=== PATIENT | male | born 1980 ===

== ENCOUNTER 2019-01-24 20:39 | Observation (INO) | payer SELFPAY ==
[2019-01-24] MEDS ORDERED: Multivitamin (MVI) 10 ML, Folic Acid 1 MG, Thiamine 100 MG in Dextrose 5%/0.45% NS 1,00... IV ONE (21:11)
[2019-01-24] MEDS ORDERED: Sodium Chloride 0.9% 1,000 ML IV STA (21:12)
--- NOTE | 2019-01-24 21:14 | ED PDOC ---
HPI: Psych/Substance Abuse Time Seen by Provider: 01/24/19 21:07 Chief Complaint (Nursing): Alcohol Ingestion Chief Complaint (Provider): Withdrawal History Per: Patient History/Exam Limitations: no limitations Onset/Duration Of Symptoms: Days (yesterday) Additional Complaint(s): Pt. states he is withdrawing from not drinking etoh since yesterday. Has nausea, shakes, and weakness all over. No numbness, tingles, abd pain, chest pain, dyspnea, dizziness, headaches. No drugs. Not suicidal or homicidal. Seen at [facility] yesterday and had neg ct head and dc. Past Medical History Reviewed: Nursing Documentation, Vital Signs Vital Signs: Last Vital Signs Temp 100.1 F H 01/24/19 20:43 Pulse 127 H 01/24/19 20:43 Resp 18 01/24/19 20:43 BP 189/119 H 01/24/19 20:43 Pulse Ox 99 01/24/19 20:43 - Medical History PMH: Asthma, HTN - Family History Family History: States: Unknown Family Hx - Living Arrangements Living Arrangements: With Family - Social History Alcohol: > 2 Drinks/Day Drugs: Denies - Home Medications Home Medications: Ambulatory Orders Medication Instructions Recorded Aspirin [Aspirin Chewable] 1 tab PO DAILY 01/24/19 Escitalopram [Lexapro] 2 tab PO DAILY 01/24/19 Levothyroxine [Synthroid] 25 mcg PO DAILY 01/24/19 Metformin HCl [Glucophage] 1,000 mg PO BID 01/24/19 Mirabegron [Myrbetriq] 50 mg PO DAILY 01/24/19 Multivitamin [Daily Multiple 1 tab PO DAILY 01/24/19 Vitamin] Pravastatin Sodium [Pravachol] 40 mg PO DAILY 01/24/19 busPIRone [Buspar] 5 mg PO BID 01/24/19 - Allergies Allergies/Adverse Reactions: Allergies Allergy/AdvReac Type Severity Reaction Status Date / Time FISH Allergy Verified 01/23/19 17:02 Review of Systems ROS Statement: Except As Marked, All Systems Reviewed And Found Negative Gastrointestinal: Positive for: Nausea Neurological: Positive for: Weakness Physical Exam - Reviewed Nursing Documentation Reviewed: Yes Vital Signs Reviewed: Yes - Physical Exam Appears: Positive for: Non-toxic, No Acute Distress Head Exam: Positive for: ATRAUMATIC, NORMAL INSPECTION, NORMOCEPHALIC Skin: Positive for: Normal Color, Warm, DRY Eye Exam: Positive for: EOMI, Normal appearance, PERRL ENT: Positive for: Normal ENT Inspection Neck: Positive for: Normal, Painless ROM, Supple Cardiovascular/Chest: Positive for: Regular Rate, Rhythm Respiratory: Positive for: CNT, Normal Breath Sounds Gastrointestinal/Abdominal: Positive for: Normal Exam, Soft. Negative for: Tenderness Back: Positive for: Normal Inspection. Negative for: L CVA Tenderness, R CVA Tenderness Extremity: Positive for: Normal ROM. Negative for: Tenderness, Pedal Edema Neurological/Psych: Positive for: Awake, Alert, Normal Tone, ignition mechanic II-XII, Other (mild shaking in hands on moving around) - Laboratory Results Result Diagrams: 01/24/19 21:20 01/24/19 21:20 Lab Results: mag 1 and platelets 35 - ECG ECG: Positive for: Interpreted By Me, Viewed By Me ECG Rhythm: Positive for: Normal QRS, Normal ST Segment, Sinus Rhythm O2 Sat by Pulse Oximetry: 99 Pulse Ox Interpretation: Normal - Progress ED Course And Treament: 2200: Stable. Continue fluids. 2311: Stable. AAOx3. Still feels weak. Will need to give continued fluids and monitor obs for withdrawal. Spoke with Dr. Richardson. Will admit tele for further eval/tx. - Critical Care Total Time (In Min): 30 Documented Critical Care: Time excludes all time spent performint seperately billable procedures Disposition - Clinical Impression Clinical Impression: Alcohol dependence with withdrawal - Patient ED Disposition Is Patient to be Admitted: Yes Counseled Patient/Family Regarding: Studies Performed, Diagnosis - Disposition Disposition Time: 21:14 Condition: FAIR - POA Present On Arrival: None
[2019-01-24 21:33] LABS: BASO # 0.1 K/uL (0.0-0.2); EOS % 0.3 % (0.0-4.0); HEMOGLOBIN 10.4 g/dL (12.0-18.0); LYMPH # 2.4 K/uL (1.0-4.3); LYMPH % 44.8 % (20.0-40.0); MEAN CELL VOLUME 100.9 fl (80.0-94.0); MEAN CORPUSCULAR HEMOGLOBIN 34.1 pg (27.0-31.0); MEAN CORPUSCULAR HGB CONC 33.8 g/dL (33.0-37.0); MEAN PLATELET VOLUME 9.5 fl (7.2-11.7); MONO # 0.4 K/uL (0.0-0.8); MONO % 6.7 % (0.0-10.0); NEUT # 2.6 K/uL (1.8-7.0); NEUT % 47.2 % (50.0-75.0); NRBC % 0.1 % (0.0-0.0); RBC 3.05 Mil/uL (4.40-5.90); RED CELL DISTRIBUTION WIDTH 16.1 % (11.5-14.5); WHITE BLOOD COUNT 5.5 K/uL (4.8-10.8)
[2019-01-24 21:50] LABS: INR 1.7; PROTHROMBIN TIME 19.1 Seconds (9.8-13.1)
[2019-01-24 21:51] LABS: BLOOD UREA NITROGEN 10 mg/dl (9-20); GFR NON-AFRICAN AMERICAN > 60
[2019-01-24 21:52] LABS: PARTIAL THROMBOPLASTIN TIME 37.5 Seconds (25.6-37.1)
[2019-01-24] MEDS ORDERED: Magnesium Sulfate 2 gm/50 ml 2 GM/50 ML BAG IVPB ONE (21:53)
[2019-01-24 21:55] LABS: ALB/GLOB RATIO 0.7 (1.0-2.1); ALBUMIN 3.7 g/dL (3.5-5.0); ALT/SGPT 44 U/L (21-72); AST/SGOT 163 U/L (17-59); CALCIUM 8.7 mg/dL (8.4-10.2); LIPASE 188 U/L (23-300)
[2019-01-24] MEDS ORDERED: Dextrose 50% SYRINGE Inj (50 ml) IV PRN (23:34)
[2019-01-24] MEDS ORDERED: Glucagon Recombinant 1 mg Inj IM PRN (23:34)
--- NOTE | 2019-01-25 00:11 | CP.PCM.HP ---
<Nicky Cha - Last Filed: 01/25/19 00:26> History of Present Illness - History of Present Illness History of Present Illness: 38 y/o male w/ hx of HTN and etoh abuse who presented to [facility] ER with c/o fatigue and hand tremors. Patient reports that he drank 7 alcoholic beverages yesterday, fell unconscious, was evaluated at [facility] ER, (CT negative for acute pathology) and discharged to home. He did not have any alcoholic drinks today, and began to feel fatigued, anxious, and shaking. He denies visual changes, auditory/visual hallucinations, chest pain. He endorses nausea, denies vomiting. Denies hx of bloody vomiting/bloody stool. Denies use of other recreational drugs. PMD: Dr. Maier Pmhx: HTN, anxiety, etoh misuse HomeRx: (goes to [facility] on [place]) Lexapro 20mg PO BID, Aprin 81 mg PO QD, Metf ormin 1000mg PO BID Famhx: Mother w/ hx of HTN. Father in his 50s due to an [facility] SocialHx: lives w/ mother. Denies tobacco and recreational drug use. Drinks etoh daily >6 drinks per day for several months SurgHx: denies Allergies: NKDA, seafood: hives Code Status: Full Code Next of Kin: MotherJuany [phone] Present on Admission - Present on Admission Any Indicators Present on Admission: No History of DVT/PE: No History of Uncontrolled Diabetes: No Urinary Catheter: No Decubitus Ulcer Present: No Review of Systems - Review of Systems All systems: reviewed and no additional remarkable complaints except - Constitutional Constitutional: Fatigue, Frequent Falls, Lethargy - EENT Eyes: absent: Change in Vision - Cardiovascular Cardiovascular: Palpitations. absent: Chest Pain - Gastrointestinal Gastrointestinal: Nausea. absent: Hematemesis, Hematochezia, Vomiting - Musculoskeletal Musculoskeletal: Tingling - Neurological Neurological: Tremor - Psychiatric Psychiatric: Anxiety. absent: Auditory Hallucinations, Visual Hallucinations Past Patient History - Past Social History Alcohol: > 2 Drinks/Day Drugs: Denies - CARDIAC Hx Hypertension: Yes - PULMONARY Hx Asthma: Yes - HEENT Other/Comment: Rt. eye truama - HEMATOLOGICAL/ONCOLOGICAL Hx Blood Disorders: Yes Hx Anemia: Yes Hx Hepatitis A: Yes - GASTROINTESTINAL Hx Gastrointestinal Disorders: Yes Hx Pancreatitis: Yes - PSYCHIATRIC Hx Substance Use: No - SURGICAL HISTORY Hx Surgeries: No - ANESTHESIA Hx Anesthesia: No Hx Anesthesia Reactions: No Meds Allergies/Adverse Reactions: Allergies Allergy/AdvReac Type Severity Reaction Status Date / Time FISH Allergy Verified 01/23/19 17:02 Physical Exam - Constitutional Appears: No Acute Distress, Older Than Stated Age - Head Exam Head Exam: ATRAUMATIC, NORMAL INSPECTION - Eye Exam Eye Exam: EOMI, PERRL. absent: Scleral icterus - ENT Exam ENT Exam: Mucous Membranes Moist - Neck Exam Neck exam: Positive for: Normal Inspection - Respiratory Exam Respiratory Exam: Clear to Auscultation Bilateral, NORMAL BREATHING PATTERN - Cardiovascular Exam Cardiovascular Exam: Tachycardia, +S1, +S2 - GI/Abdominal Exam GI & Abdominal Exam: Normal Bowel Sounds, Soft. absent: Distended, Tenderness - Extremities Exam Extremities exam: Positive for: normal inspection. Negative for: calf tenderness, pedal edema - Neurological Exam Neurological exam: Alert, Oriented x3 - Psychiatric Exam Psychiatric exam: Anxious - Skin Skin Exam: Dry, Intact, Warm Results - Vital Signs Recent Vital Signs: Last Vital Signs Temp 98.5 F 01/25/19 00:07 Pulse 102 H 01/25/19 00:07 Resp 19 01/25/19 00:07 BP 175/107 H 01/25/19 00:07 Pulse Ox 100 01/25/19 00:07 - Labs Result Diagrams: 01/24/19 21:20 01/24/19 21:20 Labs: Laboratory Results - last 24 hr 01/24/19 01/24/19 01/24/19 21:20 21:20 21:20 WBC 5.5 RBC 3.05 L Hgb 10.4 L Hct 30.8 L MCV 100.9 H MCH 34.1 H MCHC 33.8 RDW 16.1 H Plt Count 35 L MPV 9.5 Neut % (Auto) 47.2 L Lymph % (Auto) 44.8 H Barron % (Auto) 6.7 Eos % (Auto) 0.3 Baso % (Auto) 1.0 Neut # (Auto) 2.6 Lymph # (Auto) 2.4 Barron # (Auto) 0.4 Eos # (Auto) 0.0 Baso # (Auto) 0.1 PT 19.1 H INR 1.7 APTT 37.5 H Sodium 144 Potassium 3.5 L Chloride 104 Carbon Dioxide 24 Anion Gap 20 BUN 10 Creatinine 0.9 Est GFR ( Amer) > 60 Est GFR (Non-Af Amer) > 60 POC Glucose (mg/dL) Random Glucose 107 Calcium 8.7 Phosphorus 3.1 Magnesium 1.0 L* Total Bilirubin 2.5 H AST 163 H ALT 44 Alkaline Phosphatase 132 H Total Protein 9.2 H Albumin 3.7 Globulin 5.4 H Albumin/Globulin Ratio 0.7 L Lipase 188 Alcohol, Quantitative 27 H 01/24/19 21:24 WBC RBC Hgb Hct MCV MCH MCHC RDW Plt Count MPV Neut % (Auto) Lymph % (Auto) Barron % (Auto) Eos % (Auto) Baso % (Auto) Neut # (Auto) Lymph # (Auto) Barron # (Auto) Eos # (Auto) Baso # (Auto) PT INR APTT Sodium Potassium Chloride Carbon Dioxide Anion Gap BUN Creatinine Est GFR ( Amer) Est GFR (Non-Af Amer) POC Glucose (mg/dL) 94 Random Glucose Calcium Phosphorus Magnesium Total Bilirubin AST ALT Alkaline Phosphatase Total Protein Albumin Globulin Albumin/Globulin Ratio Lipase Alcohol, Quantitative Assessment & Plan - Assessment and Plan (Free Text) Assessment: 38 y/o male w/ hx of HTN and etoh abuse admitted for alcohol withdrawal and electrolyte imbalance. ETOH Withdrawal Admit to telemetry CIWA protocol in place Ativan 1mg PO Q4 PRN for agitation Ativan 2mg PO Q4 PRN for withdrawal Clonidine 0.2mg PO BID Librium 50mg PO Q8H seizure prophylaxis Thiamine 100mg PO QD Seizure precautions cont. Aspiration precautions cont. Neurochecks Q4H Banana Bag @ 125ml/hr Electrolyte Imbalance K+ 3.5, Mag 1.0 Received Mag Sulfate 2gm in 50ml IVPD once in ER Mag Oxide 400mg PO Q4H (x4 doses ordered) Will Supplement KCl- 40mg PO once Trend and monitor electrolytes F/u CMP and mag levels in AM Hypertension Clonidine 0.2mg PO BID Monitor vitals Thrombocytopenia Pltlt ct. 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 home meds; Lexapro 40mg PO QD Hx of Recent Fall Head CT 01/23/19: no acute intracranial abnormalities GI prophylaxis Protonix 40mg PO QD DVT Prophylaxis SCDs Diet NPO for now, heart healthy in the AM Code Status Full Code <Daniel Richardson - Last Filed: 01/25/19 07:19> Results - Vital Signs Recent Vital Signs: Last Vital Signs Temp 98.2 F 01/25/19 05:27 Pulse 70 01/25/19 05:27 Resp 18 01/25/19 06:04 BP 153/88 H 01/25/19 05:27 Pulse Ox 93 L 01/25/19 06:04 - Labs Result Diagrams: 01/25/19 04:30 01/25/19 04:30 Labs: Laboratory Results - last 24 hr 01/24/19 01/24/19 01/24/19 21:20 21:20 21:20 WBC 5.5 RBC 3.05 L Hgb 10.4 L Hct 30.8 L MCV 100.9 H MCH 34.1 H MCHC 33.8 RDW 16.1 H Plt Count 35 L MPV 9.5 Neut % (Auto) 47.2 L Lymph % (Auto) 44.8 H Barron % (Auto) 6.7 Eos % (Auto) 0.3 Baso % (Auto) 1.0 Neut # (Auto) 2.6 Lymph # (Auto) 2.4 Barron # (Auto) 0.4 Eos # (Auto) 0.0 Baso # (Auto) 0.1 PT INR APTT Sodium 144 Potassium 3.5 L Chloride 104 Carbon Dioxide 24 Anion Gap 20 BUN 10 Creatinine 0.9 Est GFR ( Amer) > 60 Est GFR (Non-Af Amer) > 60 POC Glucose (mg/dL) Random Glucose 107 Calcium 8.7 Phosphorus 3.1 Magnesium 1.0 L* Total Bilirubin 2.5 H AST 163 H ALT 44 Alkaline Phosphatase 132 H Total Protein 9.2 H Albumin 3.7 Globulin 5.4 H Albumin/Globulin Ratio 0.7 L Lipase 188 Urine Opiates Screen Negative Urine Methadone Screen Negative Ur Barbiturates Screen Negative Ur Phencyclidine Scrn Negative Ur Amphetamines Screen Negative U Benzodiazepines Scrn Positive U Oth Cocaine Metabols Negative U Cannabinoids Screen Negative Alcohol, Quantitative 27 H 0301/24/19 01/25/19 21:20 21:24 04:30 WBC 4.1 L RBC 2.83 L Hgb 9.7 L Hct 28.7 L MCV 101.4 H MCH 34.3 H MCHC 33.9 RDW 16.0 H Plt Count 21 L* D MPV 9.8 Neut % (Auto) 43.8 L Lymph % (Auto) 45.8 H Barron % (Auto) 8.9 Eos % (Auto) 1.1 Baso % (Auto) 0.4 Neut # (Auto) 1.8 Lymph # (Auto) 1.9 Barron # (Auto) 0.4 Eos # (Auto) 0.0 Baso # (Auto) 0.0 PT 19.1 H INR 1.7 APTT 37.5 H Sodium Potassium Chloride Carbon Dioxide Anion Gap BUN Creatinine Est GFR ( Amer) Est GFR (Non-Af Amer) POC Glucose (mg/dL) 94 Random Glucose Calcium Phosphorus Magnesium Total Bilirubin AST ALT Alkaline Phosphatase Total Protein Albumin Globulin Albumin/Globulin Ratio Lipase Urine Opiates Screen Urine Methadone Screen Ur Barbiturates Screen Ur Phencyclidine Scrn Ur Amphetamines Screen U Benzodiazepines Scrn U Oth Cocaine Metabols U Cannabinoids Screen Alcohol, Quantitative 01/25/19 01/25/19 04:30 05:56 WBC RBC Hgb Hct MCV MCH MCHC RDW Plt Count MPV Neut % (Auto) Lymph % (Auto) Barron % (Auto) Eos % (Auto) Baso % (Auto) Neut # (Auto) Lymph # (Auto) Barron # (Auto) Eos # (Auto) Baso # (Auto) PT INR APTT Sodium 140 Potassium 3.5 L Chloride 105 Carbon Dioxide 27 Anion Gap 12 BUN 10 Creatinine 0.9 Est GFR ( Amer) > 60 Est GFR (Non-Af Amer) > 60 POC Glucose (mg/dL) 130 H Random Glucose 131 H Calcium 7.9 L Phosphorus 3.3 Magnesium 1.6 Total Bilirubin 2.7 H AST 149 H ALT 53 Alkaline Phosphatase 105 Total Protein 8.3 H Albumin 3.2 L Globulin 5.1 H Albumin/Globulin Ratio 0.6 L Lipase Urine Opiates Screen Urine Methadone Screen Ur Barbiturates Screen Ur Phencyclidine Scrn Ur Amphetamines Screen U Benzodiazepines Scrn U Oth Cocaine Metabols U Cannabinoids Screen Alcohol, Quantitative Attending/Attestation - Attestation I have personally seen and examined this patient.: Yes I have fully participated in the care of the patient.: Yes I have reviewed all pertinent clinical information: Yes Notes (Text): 01/25/19 06:58 I saw, examined and discussed this patient with Dr Cha. I agree with the assessment and plan outlined and will add or correct where necessary. This is a 38 years old male Alcoholic with hx of Hepatitis A, Pancreatitis, Thro mbocytopenia and Macrocytic Anemia whose last alcoholic drink was the day prior to this admission. He comes with generalized weakness, tremors, nausea and in the Ed, elevated BP of 189/119mmHg, HR of 127 and temperature of 100.1F. He is being treated for Alcoholic Withdrawal and Electrolyte imbalance with Hypomagnesemia and Hypokalemia Follow electrolyes, LFT and CBC. Daniel Richardson MD 01/25/19 07:18
[2019-01-25] MEDS ORDERED: Potassium Chloride 20 mEq ER Tab PO ONE ×3 (00:17→07:00)
[2019-01-25] MEDS: Magnesium Oxide 400 mg Tab UD PO SCH ×3 (03:32→08:22)
[2019-01-25 03:44] LABS: BARBITURATES, UR NEGATIVE (NEGATIVE); BENZODIAZEPINES, UR POSITIVE (NEGATIVE); OPIATES, UR NEGATIVE (NEGATIVE); PHENCYCLIDINE, UR NEGATIVE (NEGATIVE)
[2019-01-25 05:28] VITALS: TEMP 98.2
[2019-01-25 06:08] LABS: BASO % 0.4 % (0.0-2.0); EOS % 1.1 % (0.0-4.0); HEMOGLOBIN 9.7 g/dL (12.0-18.0); LYMPH # 1.9 K/uL (1.0-4.3); LYMPH % 45.8 % (20.0-40.0); MEAN CELL VOLUME 101.4 fl (80.0-94.0); MEAN CORPUSCULAR HEMOGLOBIN 34.3 pg (27.0-31.0); MEAN CORPUSCULAR HGB CONC 33.9 g/dL (33.0-37.0); MEAN PLATELET VOLUME 9.8 fl (7.2-11.7); MONO # 0.4 K/uL (0.0-0.8); MONO % 8.9 % (0.0-10.0); NEUT # 1.8 K/uL (1.8-7.0); NEUT % 43.8 % (50.0-75.0); NRBC % 0.2 % (0.0-0.0); RBC 2.83 Mil/uL (4.40-5.90); WHITE BLOOD COUNT 4.1 K/uL (4.8-10.8)
[2019-01-25 06:19] LABS: ALB/GLOB RATIO 0.6 (1.0-2.1); ALBUMIN 3.2 g/dL (3.5-5.0); ALT/SGPT 53 U/L (21-72); AST/SGOT 149 U/L (17-59); BLOOD UREA NITROGEN 10 mg/dl (9-20); CALCIUM 7.9 mg/dL (8.4-10.2); GFR NON-AFRICAN AMERICAN > 60
[2019-01-25] MEDS ORDERED: Levothyroxine 25 MCG TAB PO SCH (06:30)
[2019-01-25] MEDS ORDERED: Insulin Regular 100 units/ml SC SCH (07:30)
[2019-01-25] MEDS ORDERED: Potassium Ch 20mEq in D5-1/2NS 1,000 ML IV SCH (07:45)
[2019-01-25 08:19] VITALS: BP 159/95; PULSE 82; RESP 20; O2SAT 96
[2019-01-25] MEDS ORDERED: Pantoprazole 40 mg EC Tab PO SCH (09:00)
[2019-01-25] MEDS ORDERED: Pravastatin Sodium 40 MG TAB PO SCH (09:00)
--- NOTE | 2019-01-25 10:51 | CP.PCM.DIS ---
Provider - Provider Date of Admission: 01/24/19 23:15 Attending physician: Daniel Richardson Consults: 01/25/19 06:19 Social Work Referral Routine Comment: hx alcohol abuse Physician Instructions: Reason For Exam: hx alcohol abuse Time Spent in preparation of Discharge (in minutes): 33 Diagnosis - Discharge Diagnosis (1) Alcohol dependence with withdrawal Status: Acute (2) Alcohol abuse Status: Chronic Hospital Course - Lab Results Lab Results: Most Recent Lab Values WBC 4.1 K/uL (4.8-10.8) L 01/25/19 04:30 RBC 2.83 Mil/uL (4.40-5.90) L 01/25/19 04:30 Hgb 9.7 g/dL (12.0-18.0) L 01/25/19 04:30 Hct 28.7 % (35.0-51.0) L 01/25/19 04:30 MCV 101.4 fl (80.0-94.0) H 01/25/19 04:30 MCH 34.3 pg (27.0-31.0) H 01/25/19 04:30 MCHC 33.9 g/dL (33.0-37.0) 01/25/19 04:30 RDW 16.0 % (11.5-14.5) H 01/25/19 04:30 Plt Count 21 K/uL (130-400) L* D 01/25/19 04:30 Manual Plt Count 19 K/uL (130-400) L* 01/25/19 08:03 MPV 9.8 fl (7.2-11.7) 01/25/19 04:30 Neut % (Auto) 43.8 % (50.0-75.0) L 01/25/19 04:30 Lymph % (Auto) 45.8 % (20.0-40.0) H 01/25/19 04:30 [place] % (Auto) 8.9 % (0.0-10.0) 01/25/19 04:30 Eos % (Auto) 1.1 % (0.0-4.0) 01/25/19 04:30 Baso % (Auto) 0.4 % (0.0-2.0) 01/25/19 04:30 Neut # (Auto) 1.8 K/uL (1.8-7.0) 01/25/19 04:30 Lymph # (Auto) 1.9 K/uL (1.0-4.3) 01/25/19 04:30 [place]ridge # (Auto) 0.4 K/uL (0.0-0.8) 01/25/19 04:30 Eos # (Auto) 0.0 K/uL (0.0-0.7) 01/25/19 04:30 Baso # (Auto) 0.0 K/uL (0.0-0.2) 01/25/19 04:30 PT 19.1 Seconds (9.8-13.1) H 01/24/19 21:20 INR 1.7 01/24/19 21:20 APTT 37.5 Seconds (25.6-37.1) H 01/24/19 21:20 Sodium 140 mmol/l (132-148) 01/25/19 04:30 Potassium 3.5 MMOL/L (3.6-5.0) L 01/25/19 04:30 Chloride 105 mmol/L (98-107) 01/25/19 04:30 Carbon Dioxide 27 mmol/L (22-30) 01/25/19 04:30 Anion Gap 12 (10-20) 01/25/19 04:30 BUN 10 mg/dl (9-20) 01/25/19 04:30 Creatinine 0.9 mg/dl (0.8-1.5) 01/25/19 04:30 Est GFR ( Amer) > 60 01/25/19 04:30 Est GFR (Non-Af Amer) > 60 01/25/19 04:30 POC Glucose (mg/dL) 130 mg/dL (65-110) H 01/25/19 05:56 Random Glucose 131 mg/dL (75-110) H 01/25/19 04:30 Calcium 7.9 mg/dL (8.4-10.2) L 01/25/19 04:30 Phosphorus 3.3 mg/dl (2.5-4.5) 01/25/19 04:30 Magnesium 1.6 MG/DL (1.6-2.3) 01/25/19 04:30 Total Bilirubin 2.7 mg/dl (0.2-1.3) H 01/25/19 04:30 AST 149 U/L (17-59) H 01/25/19 04:30 ALT 53 U/L (21-72) 01/25/19 04:30 Alkaline Phosphatase 105 U/L (38-126) 01/25/19 04:30 Total Protein 8.3 G/DL (6.3-8.2) H 01/25/19 04:30 Albumin 3.2 g/dL (3.5-5.0) L 01/25/19 04:30 Globulin 5.1 gm/dL (2.2-3.9) H 01/25/19 04:30 Albumin/Globulin Ratio 0.6 (1.0-2.1) L 01/25/19 04:30 Lipase 188 U/L (23-300) 01/24/19 21:20 Urine Opiates Screen Negative (NEGATIVE) 01/24/19 21:20 Urine Methadone Screen Negative (NEGATIVE) 01/24/19 21:20 Ur Barbiturates Screen Negative (NEGATIVE) 01/24/19 21:20 Ur Phencyclidine Scrn Negative (NEGATIVE) 01/24/19 21:20 Ur Amphetamines Screen Negative (NEGATIVE) 01/24/19 21:20 U Benzodiazepines Scrn Positive (NEGATIVE) 01/24/19 21:20 U Oth Cocaine Metabols Negative (NEGATIVE) 01/24/19 21:20 U Cannabinoids Screen Negative (NEGATIVE) 01/24/19 21:20 Alcohol, Quantitative 27 mg/dl (0-10) H 01/24/19 21:20 - Hospital Course Hospital Course: 38 y/o male with PMH of HTN and ETOH abuse who presented to the ED with c/o fatigue and hand tremors and was admitted for alcohol withdrawal. Patient reports he drinks 5 to 6 beers everyday and yesterday he drank 7 alcoholic beverages yesterday. Patient's labs reviewed showed elevated liver enzymes with AST/ALT 164/44, mild megaloblastic anemia Hb 10.4, MCV 100.9 and thrombocytopenia, all consistent with chronic alcohol abuse. Patient today is seen and examined at bedside, denies SANTANA, visual changes, auditory/visual hallucinations, chest pain, abdominal pain, N/V/D, fever, or profuse sweating. Patient examined and found stable, AAOx3, no tremors noted, no anxiety, no diaphoresis, no agitation appreciated. Hemodinamicaly stable, EKG done showed NSR no ST segment T wave abnormalities. During hospital course patient was treated with IVF, CIWA protocol was in placed, electrolyte low magnesium was corrected. Patient is for discharge home today with instructions to f/u as outpatient his elevated liver enzymes, anemia and thrombocytopenia. Patient is extensively educated on the deleterious health effects of alcohol abuse and the importance of avoiding alcohol, patient verbalizes understanding, but unclear if he is ready to address his alcohol abuse. Patient will be discharge with taper down dose of Librium accordingly for prevention treatment of alcohol withrawal symptoms, F/u as outpatient in 2 to 3 days with PMD. Discharge Exam - Head Exam Head Exam: ATRAUMATIC, NORMAL INSPECTION - Eye Exam Eye Exam: EOMI, Scleral icterus - Neck Exam Neck exam: Full Rom - Respiratory Exam Respiratory Exam: Clear to PA & Lateral - Cardiovascular Exam Cardiovascular Exam: REGULAR RHYTHM, +S1, +S2 - GI/Abdominal Exam GI & Abdominal Exam: Normal Bowel Sounds. absent: Tenderness - Neurological Exam Neurological exam: Alert, Normal Gait, Oriented x3 Additional comments: No tremors noted Romberg negative - Psychiatric Exam Psychiatric exam: Normal Affect - Skin Skin Exam: Dry, Normal Color, Warm Discharge Plan - Discharge Medications Prescriptions: [id number] [Librium] 10 mg PO Q8 #12 cap - Follow Up Plan Condition: FAIR Disposition: HOME/ ROUTINE Patient education suggested?: Yes Instructions: Alcohol Withdrawal (DC), Alcohol Abuse and Alcoholism (DC), Effects of Alcohol on Your Health, Alcohol Use Disorder (DC) Additional Instructions: Follow up with your PMD or at [facility] within 2 to 3 days. Follow up with the instruction given to you about your condition. Follow up with your doctor as instructed in 2 to 3 days. ED Precautions: Return to ED if your condition recurs or worsens, or you have headache, palpitations, sweating, dizziness, blurry vision, abdominal pain, fever, chest pain or other new symptom or concern presents. Referrals: [facility] [place] [Outside]
--- NOTE | 2019-01-25 20:03 | CARD ---
APPROVED REPORT Date of service: 01/24/2019 EKG Measurement Heart [id number] <Conclusion> Normal sinus rhythm Normal Electrocardiogram
== END 2019-01-25 12:30 | disposition home or self-care (01) ==
LOC: H.ER 20:39 → H.ERHOLD 23:15 → H.TEL 01-25 01:46
PROVIDERS: ADMIT Internal Medicine; ATTEND Internal Medicine
DX: F10.231 Alcohol dependence with withdrawal delirium (principal); I10 Essential (primary) hypertension; Z79.82 Long term (current) use of aspirin; Z79.890 Hormone replacement therapy; F41.9 Anxiety disorder, unspecified; D53.1 Other megaloblastic anemias, not elsewhere classified; E83.42 Hypomagnesemia; E87.6 Hypokalemia; K70.9 Alcoholic liver disease, unspecified; Y90.1 Blood alcohol level of 20-39 mg/100 ml; D61.818 Other pancytopenia; J45.909 Unspecified asthma, uncomplicated; Z91.013 Allergy to seafood; Z79.84 Long term (current) use of oral hypoglycemic drugs
CPT/HCPCS: 36415; 80053; 82948; 83690; 83735; 84100; 85025; 85610; 85730; 93005; 96361; 96365; 96366; 96367; 96375; 99285; G0378; G0480; J2060; J2405; J3411; J7030; J7042

== ENCOUNTER 2019-04-07 10:58 | Emergency (ER) | payer MEDICAID ==
[2019-04-07 11:01] VITALS: BMI 27.6
[2019-04-07 11:57] LABS: BASO % 0.8 % (0.0-2.0); EOS # 0.1 K/uL (0.0-0.7); EOS % 1.4 % (0.0-4.0); HEMOGLOBIN 10.6 g/dL (12.0-18.0); LYMPH # 3.2 K/uL (1.0-4.3); LYMPH % 57.7 % (20.0-40.0); MEAN CELL VOLUME 98.2 fl (80.0-94.0); MEAN CORPUSCULAR HEMOGLOBIN 33.6 pg (27.0-31.0); MEAN CORPUSCULAR HGB CONC 34.2 g/dL (33.0-37.0); MONO # 0.4 K/uL (0.0-0.8); MONO % 7.4 % (0.0-10.0); NEUT # 1.8 K/uL (1.8-7.0); NEUT % 32.7 % (50.0-75.0); NRBC % 0.1 % (0.0-0.0); RBC 3.15 Mil/uL (4.40-5.90); RED CELL DISTRIBUTION WIDTH 19.2 % (11.5-14.5); WHITE BLOOD COUNT 5.6 K/uL (4.8-10.8)
[2019-04-07 12:05] LABS: ALB/GLOB RATIO 0.6 (1.0-2.1); ALBUMIN 3.3 g/dL (3.5-5.0); ALT/SGPT 77 U/L (21-72); AST/SGOT 174 U/L (17-59); BLOOD UREA NITROGEN 11 mg/dl (9-20); CALCIUM 7.9 mg/dL (8.4-10.2); GFR NON-AFRICAN AMERICAN > 60; LIPASE 214 U/L (23-300)
--- NOTE | 2019-04-07 12:05 | ED PDOC ---
Lower Extremity Pain/Injury Time Seen by Provider: 04/07/19 11:16 Chief Complaint (Nursing): Lower Extremity Problem/Injury Chief Complaint (Provider): lower extremity swelling History Per: Patient History/Exam Limitations: no limitations Onset/Duration Of Symptoms: Days Current Symptoms Are (Timing): Still Present Severity: Moderate Additional History Per: Patient Additional Complaint(s): 39 year old male with history of Hypertension and alcohol abuse presents to the ED c/o bilat lower extremity swelling and pain for one month. Patient states swelling has worsened gradually and noticed swelling when applying his socks. He states pain worse after ambulation. He has also noted his abdomen has increase. Additionally he reports he has been drinking alcohol (3-4 beers) a day for 3-4 months consecutively after having "problems" with his ex-girl friend. Patient is currently seeing a psychiatrist and is in process for getting help for alcoholism. Last drink was last night. He reports he takes Clonazepam for temors and losartan for hypertension. He denies shortness of breath, chest pain, abdominal pain, nausea and vomiting. - Risk Factors DVT Risk Factors: Pos: None Past Medical History Reviewed: Historical Data, Nursing Documentation, Vital Signs Vital Signs: Last Vital Signs Temp 98.5 F 04/07/19 11:02 Pulse 114 H 04/07/19 11:02 Resp 17 04/07/19 11:02 BP 169/97 H 04/07/19 11:02 Pulse Ox 96 04/07/19 11:02 Primary Care Provider: FAMILY PROVIDER,NO - Medical History PMH: Anemia, Asthma, HTN, Pancreatitis Denies: HIV, Chronic Kidney Disease - Surgical History Surgical History: No Surg Hx - Family History Family History: States: Unknown Family Hx - Living Arrangements Living Arrangements: With Family - Social History Alcohol: > 2 Drinks/Day Drugs: Denies - Home Medications Home Medications: Ambulatory Orders Medication Instructions Recorded Cyanocobalamin [Vitamin B12 1000 1,000 mcg PO DAILY tab 01/25/19 mcg Tab] Folic Acid 1 mg PO DAILY tab 01/25/19 Thiamine [Vitamin B1 Tab] 100 mg PO DAILY tab 01/25/19 chlordiazePOXIDE [Librium] 10 mg PO Q8 #12 cap 01/25/19 - Allergies Allergies/Adverse Reactions: Allergies Allergy/AdvReac Type Severity Reaction Status Date / Time FISH Allergy RASH Verified 05/21/19 11:26 seafood Allergy ANAPHYLAXIS Uncoded 04/07/19 11:26 Wells Criteria for PE - Wells Criteria for Pulmonary Embolism Clinical Signs and Symptoms of DVT: No P.E is #1 Diagnosis, or Equally Likely: No Heart Rate >100: Yes Immobilization at least 3 days;Surgery previous 4 weeks: No Previous, objectively diagnosed PE or DVT: No Hemoptysis: No Malignancy w/treatment within 6 months, or palliative: No Total Score: 1.5 Review of Systems ROS Statement: Except As Marked, All Systems Reviewed And Found Negative Constitutional: Negative for: Fever, Chills, Sweats, Weakness, Malaise Eyes: Negative for: Pain, Vision Change, Conjunctivae Inflammation, Eyelid Inflammation Cardiovascular: Positive for: Edema. Negative for: Chest Pain, Palpitations, Light Headedness Respiratory: Negative for: Cough, Shortness of Breath, SOB with Exertion, Wheezing Gastrointestinal: Negative for: Nausea, Vomiting, Abdominal Pain, Diarrhea, Constipation, Hematochezia Genitourinary Male: Negative for: Dysuria, Hematuria Musculoskeletal: Negative for: Neck Pain, Shoulder Pain, Back Pain, Foot Pain Skin: Negative for: Rash Neurological: Negative for: Weakness Physical Exam - Reviewed Nursing Documentation Reviewed: Yes Vital Signs Reviewed: Yes - Physical Exam Appears: Positive for: Well, Non-toxic, No Acute Distress Head Exam: Positive for: ATRAUMATIC, NORMAL INSPECTION, NORMOCEPHALIC Skin: Positive for: Normal Color, Warm, DRY Eye Exam: Positive for: Normal appearance, PERRL. Negative for: Conjunctival injection, Scleral icterus ENT: Positive for: Normal ENT Inspection Neck: Positive for: Normal, Painless ROM, Supple Cardiovascular/Chest: Positive for: Regular Rate, Rhythm, Chest Non Tender Respiratory: Positive for: CNT, Normal Breath Sounds Pulses-Dorsalis Pedis (L): 2+ Pulses-Dorsalis Pedis (R): 2+ Gastrointestinal/Abdominal: Positive for: Normal Exam, Bowel Sounds (normactive ), Soft Back: Positive for: Normal Inspection Extremity: Positive for: Capillary Refill (< 2 secs bilat ), Swelling (bilat ankle swelling 2+ edema, scattered spider like rash to right lower extremity. extremitieds are warm touch equal bilat, color WNL, non-tender to touch. ). Negative for: Deformity Neurological/Psych: Positive for: Awake, Alert, Normal Tone, Oriented - Laboratory Results Result Diagrams: 04/07/19 11:45 04/07/19 11:45 - ECG O2 Sat by Pulse Oximetry: 96 Medical Decision Making Medical Decision Making: --CBC --CMP --BNP --MAG --PHOS --ABD US --LOWER EXT DOPP 14:33 Lower extremity Doppler US FINDINGS: COMMON FEMORAL VEIN: Right CFV: Unremarkable. Left CFV: Unremarkable. SUPERFICIAL FEMORAL VEIN: Right SFV: Unremarkable. Left SFV: Unremarkable. POPLITEAL VEIN: Right Popliteal: Unremarkable. Left Popliteal: Unremarkable. POSTERIOR TIBIAL VEIN: Right PTV: Unremarkable. Left PTV: Unremarkable. OTHER FINDINGS: Left popliteal fossa cyst 3.9 x 1.5 x 1.9 cm. Layering of debris identified. IMPRESSION: No evidence of deep venous thrombosis. Left popliteal fossa cyst. 15:22 Abdomen US FINDINGS: LIVER: Measures 19.3 cm in length. Normal echogenicity of the liver parenchyma. Mildly nodular contour suggestive of hepatic cirrhosis. No mass. No biliary ductal dilatation. GALLBLADDER: Unremarkable. No gallstones. COMMON BILE DUCT: Measures 5 mm. No stones. No dilatation. PANCREAS: Unremarkable as visualized. No mass. No ductal dilatation. RIGHT KIDNEY: Measures 11.1 cm in length. Normal echogenicity. No calculus, mass, or hydronephrosis. AORTA: No aneurysmal dilatation. IVC: Unremarkable. OTHER FINDINGS: None . IMPRESSION: Nodular hepatic contour suggestive of hepatic cirrhosis. Correlate with clinical and laboratory evaluation. Mild hepatomegaly. Otherwise unremarkable. 15:30 labs reviewed by me, LFTs elevated probably cause liver damage from alcohol consumption. Clinical findings discussed with patient. patient advised to stop drinking alcohol. patient is currently in the process of seeking help for alcohol abuse. Referral given to Dr. Ahumada (hepatic specialist) for liver enyzme follow-up. patient states understanding and agrees with plan. Disposition - Clinical Impression Clinical Impression: Alcohol abuse, Liver damage, alcoholic - Patient ED Disposition Is Patient to be Admitted: No Counseled Patient/Family Regarding: Diagnosis, Need For Followup - Disposition Disposition: Routine/Home Disposition Time: 15:30 Condition: GOOD Additional Instructions: Dr. Daniel Ahumada [address] [place] [id number] Instructions: Alcohol Abuse and Alcoholism (DC) Forms: [employer] (Estonian) Print Language: MEXICAN - POA Present On Arrival: None
[2019-04-07 12:50] LABS: URINE BILIRUBIN NEGATIVE (NEGATIVE); URINE BLOOD NEGATIVE (NEGATIVE); URINE CLARITY CLEAR (Clear); URINE COLOR STRAW (YELLOW); URINE GLUCOSE (UA) NEG (NEGATIVE); URINE LEUKOCYTE ESTERASE NEG Leu/uL (Negative); URINE PROTEIN NEGATIVE (NEGATIVE); URINE UROBILINOGEN 0.2-1.0 mg/dL (0.2-1.0)
[2019-04-07 12:55] LABS: MEAN PLATELET VOLUME 10.3 fl (7.2-11.7)
[2019-04-07 12:59] LABS: INR 2.1; PROTHROMBIN TIME 23.6 Seconds (9.8-13.1)
[2019-04-07 13:42] VITALS: BP 140/90; PULSE 89; RESP 18; TEMP 98
--- NOTE | 2019-04-07 14:37 | US ---
Date of service: 04/07/2019 PROCEDURE: Bilateral lower extremity venous duplex Doppler. HISTORY: bilat lower extremity COMPARISON: None available. TECHNIQUE: Bilateral common femoral, superficial femoral, popliteal and posterior tibial veins were evaluated. Flow was assessed with color Doppler, compressibility, assessment of phasic flow and augmentation response. FINDINGS: COMMON FEMORAL VEIN: Right CFV: Unremarkable. Left CFV: Unremarkable. SUPERFICIAL FEMORAL VEIN: Right SFV: Unremarkable. Left SFV: Unremarkable. POPLITEAL VEIN: Right Popliteal: Unremarkable. Left Popliteal: Unremarkable. POSTERIOR TIBIAL VEIN: Right PTV: Unremarkable. Left PTV: Unremarkable. OTHER FINDINGS: Left popliteal fossa cyst 3.9 x 1.5 x 1.9 cm. Layering of debris identified. IMPRESSION: No evidence of deep venous thrombosis. Left popliteal fossa cyst.
[2019-04-07 15:19] VITALS: O2SAT 96
--- NOTE | 2019-04-07 15:26 | US ---
Date of service: 04/07/2019 HISTORY: r/o liver disease COMPARISON: None. TECHNIQUE: Sonographic evaluation of the right upper quadrant of the abdomen. FINDINGS: LIVER: Measures 19.3 cm in length. Normal echogenicity of the liver parenchyma. Mildly nodular contour suggestive of hepatic cirrhosis. No mass. No biliary ductal dilatation. GALLBLADDER: Unremarkable. No gallstones. COMMON BILE DUCT: Measures 5 mm. No stones. No dilatation. PANCREAS: Unremarkable as visualized. No mass. No ductal dilatation. RIGHT KIDNEY: Measures 11.1 cm in length. Normal echogenicity. No calculus, mass, or hydronephrosis. AORTA: No aneurysmal dilatation. IVC: Unremarkable. OTHER FINDINGS: None . IMPRESSION: Nodular hepatic contour suggestive of hepatic cirrhosis. Correlate with clinical and laboratory evaluation. Mild hepatomegaly. Otherwise unremarkable.
== END 2019-04-07 15:36 | disposition home or self-care (01) ==
LOC: H.ER 10:58
DX: F10.10 Alcohol abuse, uncomplicated (principal); I10 Essential (primary) hypertension; J45.909 Unspecified asthma, uncomplicated